=== PATIENT | female | born 2000 | race Caucasian/White ===

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

== ENCOUNTER → 2022-01-14 16:21 | Outpatient (CLI) | payer SELFPAY ==
--- NOTE | 2022-01-14 16:22 | DI.US.S_ITS ---
PROCEDURE: US THYROID INDICATIONS: ENLARGED THYROID TECHNIQUE: Real-time scanning was performed of the thyroid gland, with image documentation. COMPARISON: None. FINDINGS: Right thyroid measures 5 x 1.5 x 1.5 centimeters. Left thyroid measures 4.7 x 1.1 x 1.4 centimeters. The isthmus measures 2.1 centimeters. No actionable thyroid nodule. IMPRESSION: No actionable thyroid nodule identified. Homogeneous thyroid parenchyma. Dictated by: Gregory Hargrove M.D. on 01/14/2022 at 16:56 Approved by: Gregory Hargrove M.D. on 01/14/2022 at 16:57
== END ==
PROVIDERS: Referring Provider Obstetrics & Gynecology; Visit Provider Obstetrics & Gynecology
DX: E04.9 Nontoxic goiter, unspecified (principal)
CPT/HCPCS: 76536

== ENCOUNTER → 2022-02-07 07:21 | Outpatient (CLI) | payer SELFPAY ==
--- NOTE | 2022-02-07 07:25 | DI.CT.S_ITS ---
PROCEDURE: CT PELVIS W CON INDICATIONS: Unable to see ovaries TECHNIQUE: After the administration of oral contrast and intravenous contrast, 5 mm thick sections acquired from the iliac crests to the symphysis. 5 mm thick coronal and sagittal reformats were acquired. For radiation dose reduction, the following was used: automated exposure control, adjustment of mA and/or kV according to patient size. COMPARISON: None. FINDINGS: Image quality: Excellent. Peritoneum and bowel: No bowel obstruction. Small amount pelvic free fluid. Genitourinary: Ovaries are within normal limits on CT evaluation, with suspected dominant follicle versus corpus luteum in the left and overall ovary measuring about 2.3 x 2.2 cm. The right ovary measures about 1.4 x 2.0 cm. The uterus overall is not enlarged with endometrium measuring about 4-5 mm. Nodes and vessels: No iliac, pelvic, or inguinal adenopathy. Iliac vessels demonstrate normal size and enhancement. Bones: No suspicious bony lesions. Miscellaneous: No inguinal hernias. IMPRESSION: Nonenlarged ovaries bilaterally, with suspected dominant follicle versus corpus luteum on the left Dictated by: Gregory Hargrove M.D. on 02/07/2022 at 9:25 Approved by: Gregory Hargrove M.D. on 02/07/2022 at 9:28
== END ==
PROVIDERS: Referring Provider Obstetrics & Gynecology; Visit Provider Obstetrics & Gynecology
DX: N92.6 Irregular menstruation, unspecified (principal); N91.1 Secondary amenorrhea
CPT/HCPCS: 72193; Q9967